=== PATIENT | male | born 1970 | race Caucasian/White ===

== ENCOUNTER 2019-01-08 19:07 | Emergency (ER) | payer SELFPAY ==
[~2019-01-08] VITALS: Ht 170.2 cm; Wt 90.0 kg
[2019-01-08] MEDS ORDERED: IBUPROFEN 600MG TABLET PO ONE (19:30)
[2019-01-09 06:00] VITALS: BP 105/62
== END 2019-01-09 13:45 | disposition home or self-care (01) ==
LOC: ER 19:07
DX: M79.18 Myalgia, other site (principal); F17.200 Nicotine dependence, unspecified, uncomplicated; F14.10 Cocaine abuse, uncomplicated; F12.10 Cannabis abuse, uncomplicated; E11.9 Type 2 diabetes mellitus without complications; I10 Essential (primary) hypertension; F20.9 Schizophrenia, unspecified; Z59.0 Homelessness
CPT/HCPCS: 99283; Z7610